=== PATIENT | male | born 1955 | race American Indian/Alaskan Native ===

== ENCOUNTER 2018-10-31 07:54 | Day surgery (SDC) | payer MEDICARE ==
[2018-10-31] MEDS ORDERED: LACTATED RINGERS 1,000 ML ONE (08:14)
--- NOTE | 2018-10-31 08:20 | Anesthesia Consultation ---
Anesthesia Consult and Med Hx Date of service: 10/31/18 - Airway Anesthetic Teeth Evaluation: Poor (multiple missing teeth) ROM Head & Neck: Adequate Mental/Hyoid Distance: Adequate Mallampati Class: Class II Intubation Access Assessment: Probably Good - Pre-Operative Health Status ASA Pre-Surgery Classification: ASA3 - Pulmonary Hx Smoking: Yes (1 PPD X 40 YRS) Hx Asthma: Yes ( YOUNG ADULT- NO PROBLEMS NOW) Hx Sleep Apnea: No (YASMIN PRE SCREEN HIGH RISK.) - Cardiovascular System Hx Hypertension: Yes (X 5 YRS) - Central Nervous System Hx Seizures: Yes (X 1( 06/2018)- NEVER PLACED ON MEDS) - Endocrine Hx Renal Disease: Yes (kidney stones) - Other Systems Hx Cancer: No
--- NOTE | 2018-10-31 08:21 | Anesthesia Day of Surgery ---
Anesthesia Day of Surgery - Day of Surgery Patient Examined: Yes Patient H&P Reviewed: Yes Patient is NPO: Yes
[2018-10-31] MEDS ORDERED: DIPRIVAN 10 MG/ML IV ONE (08:55)
[2018-10-31] MEDS ORDERED: DILAUDID ONE (08:55)
[2018-10-31] MEDS ORDERED: XYLOCAINE MPF 2% ONE (08:59)
[2018-10-31] MEDS ORDERED: VERSED IV NR (09:00)
[2018-10-31] MEDS ORDERED: LACTATED RINGERS 1,000 ML IV SCH (09:00)
[2018-10-31] MEDS ORDERED: PEPCID IV NR (09:00)
[2018-10-31] MEDS ORDERED: ANCEF/STERILE WATER 2 GM/20 ML IV NR (10:00)
[2018-10-31 11:04] VITALS: BP 121/64
--- NOTE | 2018-10-31 11:40 | Short Stay Summary ---
Short Stay Documentation Date of service: 10/31/18 - History H&P: obtained from office - Allergies and Medications Current Medications: Allergies No Known Allergies Allergy (Verified 10/24/18 16:45) Home Medications Medication Instructions Recorded Confirmed Last Taken Type Folic Acid [Folvite] 1 mg PO QDAY 10/24/18 10/31/18 10/30/18 06:30 History Lisinopril [Zestril TAB] 40 mg PO QDAY 10/24/18 10/31/18 10/30/18 06:30 History amLODIPine [Norvasc] 10 mg PO DAILY 10/24/18 10/31/18 10/30/18 06:30 History Active Medications Cefazolin Sodium (Ancef/Sterile Water 2 Gm/20 Ml) 2 gm IV PREOP NR Stop: 10/31/18 13:00 Famotidine (Pepcid) 20 mg IV PREOP NR Stop: 10/31/18 13:00 Last Admin: 10/31/18 08:50 Dose: 20 mg Documented by: Lactated Ringer's (Lactated Ringers) 1,000 mls @ 100 mls/hr IV DIRECT HARDEEP Last Admin: 10/31/18 08:30 Dose: 100 mls/hr Documented by: Midazolam HCl (Versed) 2 mg IV PREOP NR Stop: 10/31/18 23:59 Last Admin: 10/31/18 09:00 Dose: 2 mg Documented by: - Brief post op/procedure progress note Date of procedure: 10/31/18 Pre-op diagnosis: RT RENAL STONE 5mm Post-op diagnosis: same Procedure: cysto, right stent pulled out, right renal eswl Anesthesia: GETA Findings: fair vis less dense at end Surgeon: GUICHO JAY Pathology: none Condition: stable - Hospital course Hospital course: or pacu home - Disposition Condition at discharge: Good Disposition: DC-01 TO HOME OR SELFCARE Short Stay Discharge Plan Activity: advance as tolerated Diet: advance as tolerated Additional Instructions: INCREASE ORAL FLUIDS. STRAIN ALL URINE. SAVE FRAGMENTS. CALL FOR F/U APPT. AVOID STRAINING. Follow up with: SRINIVAS VASQUEZ MD [Staff Physician] - 7 Days
--- NOTE | 2018-10-31 13:29 | Post Anesthesia Evaluation ---
- Post Anesthesia Evaluation Patient Participated: Yes Airway Patent: Yes Stable Respiratory Function: Yes Nausea/Vomiting: No Temp > 96.8F: Yes Pain Manageable: Yes Adequeate Hydration: Yes Anesthesia Complications: No
--- NOTE | 2018-11-05 13:11 | Operative Report ---
Operative Report Operative Report: Dictated
--- NOTE | 2018-11-14 07:11 | Operative Report ---
PREOPERATIVE DIAGNOSIS: Right renal stone, 5 mm. POSTOPERATIVE DIAGNOSIS: Right renal stone, 5 mm. PROCEDURES: Cystoscopy stent removal and right ESWL. FINDINGS: Fair visualization, less dense. SURGEON: Ariel Mccartney MD PATHOLOGY: None. ANESTHESIA: General. CONDITION: Stable. CLINICAL INDICATIONS: Counseled RCBA, antibiotics, SCDs. The patient has a history of having a stent with stone push back into the kidney. The patient was counseled before the procedure, discussed with the patient's primary urologist and had wanted stent pulled out. Stone did seem to be small and not obstructing. DESCRIPTION OF THE PROCEDURE: Antibiotics, SCDs, transferred to OR suite in supine position. Biplanar fluoroscopy was used to target the stone. Flexible cystoscope passed. Distal J grasped, pulled out intact under fluoroscopy. At this point, our procedure begun, delivered 3000 shocks with intermittent repositioning as necessary. At the end of the procedure, there was less stone, some portion of the stone visible, but less dense. At this point, the patient was awakened and transferred to PACU in good and stable condition. PLAN: Follow up KUB and possible repeat procedure if visible. JOB# [id number] ATS/NTS
== END 2018-10-31 07:55 | disposition home or self-care (01) ==
LOC: OR 07:54
PROVIDERS: ATTEND Urology
DX: N20.1 Calculus of ureter (principal); I10 Essential (primary) hypertension; F17.210 Nicotine dependence, cigarettes, uncomplicated; J45.909 Unspecified asthma, uncomplicated; Z87.440 Personal history of urinary (tract) infections; Z98.890 Other specified postprocedural states; Z79.899 Other long term (current) drug therapy
CPT/HCPCS: 50590; 52310; J0690; J1170; J2250; J2704; J7120